=== PATIENT | female | born 1960 | race Caucasian/White ===

== ENCOUNTER 2017-10-02 16:20 | Emergency (ER) | payer SELFPAY ==
[~2017-10-02] VITALS: Ht 165.1 cm; Wt 78.0 kg
[2017-10-02] MEDS ORDERED: KETOROLAC 30MG/ML VIAL IV STA (21:24)
[2017-10-02] MEDS ORDERED: TOPIRAMATE 25MG TABLET PO STA (21:24)
[2017-10-02] MEDS ORDERED: SODIUM CHLORIDE 0.9% 1,000 ML IV ONE (21:24)
[2017-10-02 21:42] LABS: BASOPHILS % 0.7 % (0.0-2.0); EOSINOPHILS % 1.6 % (0.0-5.0); HEMOGLOBIN. 15.6 g/dL (12.0-16.0); LYMPHOCYTES % 53.5 % (20.0-50.0); MEAN CORPUSCULAR HEMOGLOBIN 34.3 pg (28.0-32.0); MEAN CORPUSCULAR VOLUME 99.1 fL (81.0-99.0); MEAN PLATELET VOLUME 8.2 fl (7.4-10.4); MONOCYTES % 5.8 % (2.0-8.0); NEUTROPHILS % 38.4 % (40.0-76.0); PLATELET 159 x1000/uL (130-400); RED BLOOD CELL COUNT 4.54 mill/uL (4.2-5.4); RED CELL DISTRIBUTION WIDTH 14.6 % (11.6-14.6)
[2017-10-02 21:56] LABS: CHLORIDE 105 mEq/L (98-107); ETHANOL BLOOD 136 mg/dL
[2017-10-03 02:54] VITALS: BP 124/65
== END 2017-10-03 02:55 | disposition home or self-care (01) ==
LOC: ER 16:30
DX: F10.229 Alcohol dependence with intoxication, unspecified (principal); E86.0 Dehydration; M25.561 Pain in right knee; Y90.6 Blood alcohol level of 120-199 mg/100 ml
CPT/HCPCS: 36415; 71045; 80053; 85025; 93005; 96361; 96374; 99285; G0482; J1885; J7030; Z7610